=== PATIENT | female | born 1990 | race Caucasian/White ===

== ENCOUNTER 2016-10-04 21:57 | Emergency (ER) | payer MEDICAID ==
[~2016-10-04 21:57] MED LIST: IBUPROFEN600 MG PO; PERCOCET 5/3251 TA1 PO; PRENATAL-DHA P1 EACH PO
[2016-10-04 22:29] LABS: APPEARANCE CLEAR (CLEAR); COLOR YELLOW (YELLOW)
[2016-10-04 22:30] LABS: BILIRUBIN NEGATIVE (NEGATIVE); GLUCOSE NEGATIVE (NEGATIVE); HCG URINE NEGATIVE (NEGATIVE); KETONE NEGATIVE (NEGATIVE); LEUKOCYTE ESTERASE NEGATIVE (NEGATIVE); NITRITE NEGATIVE (NEGATIVE); PROTEIN NEGATIVE (NEGATIVE); UROBILINOGEN NORMAL (NORMAL)
[2016-10-04 22:38] LABS: UDS - AMPHET NEGATIVE QUAL (NEGATIVE); UDS - BARB NEGATIVE QUAL (NEGATIVE); UDS - BENZO POSITIVE QUAL (NEGATIVE); UDS - COCAINE NEGATIVE QUAL (NEGATIVE); UDS - METH NEGATIVE QUAL (NEGATIVE); UDS - OPIATE POSITIVE QUAL (NEGATIVE); UDS - PCP NEGATIVE QUAL (NEGATIVE); UDS - THC NEGATIVE QUAL (NEGATIVE)
[2016-10-04 22:49] LABS: BASOPHILS 0.4 % (0-2); HEMATOCRIT 36.8 % (36.0-48.0); HEMOGLOBIN 12.7 g/dL (12-16); IMMATURE GRANULOCYTES 0.4 % (0-5); LYMPHOCYTES 24.7 % (15-50); MCH 30.7 pg (26.0-34.0); MCHC 34.5 g/dL (31.0-37.0); MCV 88.9 fL (80.0-100.0); MEAN PLATELET VOLUME 9.6 fL (7.4-10.4); MONOCYTES 5.8 % (2-11); NEUTROPHILS 66.7 % (40-80); PLATELET COUNT 281 10x3/uL (130-400); RBC 4.14 10x6/uL (4.00-5.40); RDW 12.4 % (11.5-14.5); WBC 8.5 10x3/uL (4.8-10.8)
[2016-10-04 23:00] LABS: SALICYLATES 1.3 mg/dL (2.8-20.0)
[2016-10-04 23:01] LABS: LITHIUM 0.15 mmol/L (0.60-1.20)
[2016-10-04 23:08] LABS: ALBUMIN 4.1 g/dL (3.4-5.0); ALKALINE PHOSPHATASE 96 U/L (46-116); ALT (SGPT) 51 U/L (10-68); BILIRUBIN - TOTAL 0.31 mg/dL (0.2-1.3); CALC OSMOLALITY 280 mosm/kg (275-300); CALCIUM 9.4 mg/dL (8.5-10.1); CARBON DIOXIDE 26.5 mmol/L (21.0-32.0); CHLORIDE - SERUM 103 mmol/L (98-107); CREATININE - SERUM 0.6 mg/dL (0.6-1.3); GLUCOSE 110 mg/dL (74-106); PROTEIN - SERUM 8.1 g/dL (6.4-8.2); SODIUM 141 mmol/L (136-145); UREA NITROGEN 10 mg/dL (7-18); eGFR NON AFRICAN AMERICAN > 90 mL/min (90-120)
== END 2016-10-05 02:55 | disposition home or self-care (01) ==
LOC: D.ER 21:57
PROVIDERS: Family Medicine
DX: F32.9 Major depressive disorder, single episode, unspecified (principal); F41.9 Anxiety disorder, unspecified

== ENCOUNTER 2017-11-19 19:46 | Emergency (ER) | payer MEDICAID ==
[~2017-11-19] VITALS: Ht 152.4 cm; Wt 57.7 kg
[2017-11-19 20:15] VITALS: Ht 152.4 cm; Wt 57.7 kg
[2017-11-19] MEDS ORDERED: RESTORIL15 MG PO (20:17)
[2017-11-19] MEDS ORDERED: CIPRO500 MG PO (20:17)
[2017-11-19] MEDS ORDERED: LITHIUM CARBON300 MG PO (20:18)
[2017-11-19] MEDS ORDERED: TYLENOL #4 W/CO1 TAB PO (20:18)
[2017-11-19] MEDS ORDERED: BIRTH CONTROL (20:19)
[2017-11-19] MEDS ORDERED: TIROSINT100 MCG PO (20:19)
[2017-11-19 21:03] LABS: APPEARANCE HAZY (CLEAR)
[2017-11-19 21:04] LABS: BACTERIA MANY /hpf (NONE SEEN); COLOR ORANGE (YELLOW); RED CELLS - URINE 0-5 /hpf (0-5); SPECIFIC GRAVITY 1.015 (1.005-1.020)
[2017-11-19] MEDS ORDERED: DIFLUCAN150 MG PO (21:33)
[2017-11-19] MEDS ORDERED: ZOFRAN ODT4 MG/UDTAB PO (21:33)
[2017-11-19] MEDS ORDERED: MACROBID100 MG PO (21:33)
[2017-11-19 22:27] VITALS: BP 129/86
== END 2017-11-19 22:11 | disposition home or self-care (01) ==
LOC: D.ER 19:46
PROVIDERS: Family Medicine
DX: N39.0 Urinary tract infection, site not specified (principal); B37.3 Candidiasis of vulva and vagina

== ENCOUNTER 2018-04-28 05:10 | Day surgery (SDC) | payer MEDICAID ==
[~2018-04-28] VITALS: Ht 152.4 cm; Wt 56.7 kg
[~2018-04-28 05:10] MED LIST changes: +ATIVAN1 MG PO; +BIRTH CONTROL; +CIPRO500 MG PO; +DIFLUCAN150 MG PO; +LATUDA40 MG PO; +LITHIUM CARBON300 MG PO; +MACROBID100 MG PO; +RESTORIL15 MG PO; +TIROSINT100 MCG PO; +TRAZODONE HCL100 MG PO; +TYLENOL #4 W/CO1 TAB; +TYLENOL #4 W/CO1 TAB PO; +ZOFRAN ODT4 MG/UDTAB PO
[2018-04-28 05:32] LABS: HEMATOCRIT 35.2 % (36.0-48.0); HEMOGLOBIN 12.3 g/dL (12-16); MCH 30.7 pg (26.0-34.0); MCHC 34.9 g/dL (31.0-37.0); MCV 87.8 fL (80.0-100.0); MEAN PLATELET VOLUME 9.2 fL (7.4-10.4); RBC 4.01 10x6/uL (4.00-5.40); RDW 12.1 % (11.5-14.5); WBC 7.9 10x3/uL (4.8-10.8)
[2018-04-28 05:50] VITALS: BP 111/61; Ht 152.4 cm; Wt 56.7 kg
[2018-04-28 06:07] LABS: HCG URINE NEGATIVE (NEGATIVE)
--- NOTE | 2018-04-28 08:05 | NUR ---
REC'D FROM SURGERY. FAMILY AT BEDSIDE. VERY RESTLESS. TRYING TO GET OOB TO URINATE ALTHOUGH IT HAD BEEN EXPLAINED SHE NEEDS TO HOLD THE RIMSO MEDICATION AND TURN FROM SIDE TO SIDE FOR 15 MINUTES. CONTINUED TO ARGUE AND HIT AT SPOUSE. KEPT EXPLAINING THE PROCEDURE AND PT EVENTUALLY CALMED DOWN. C/O BURNING REALLY BAD.
--- NOTE | 2018-04-28 08:20 | NUR ---
AMBULATED TO BATHROOM AND VOIDED WITHOUT DIFFICULTY. C/O BURNING UPON URINATING. EXPLAINED MAY FEEL A BURNING SENSATION FOR A COUPLE OF DAYS. PT RELATES SHE DOES NOT FEEL SHE CAN HANDLE THIS. FL TRAY BROUGHT TO PT AND LEMON APACHE SODA.
--- NOTE | 2018-04-28 09:05 | NUR ---
TOLERATED DIET. IV DC'D WITH CATHETER INTACT.
--- NOTE | 2018-04-28 09:15 | NUR ---
WRITTEN AND VERBAL DC INST GIVEN TO PT ALONG WITH FOLLOW UP APPT. VERBALIZED UNDERSTANDING. DC'D HOME WITH FAMILY VIA PRIVATE VEHICLE. TAKEN TO VEHICLE VIA WC. STABLE AT TIME OF DC.
--- NOTE | 2018-04-28 10:38 | OP ---
PATIENT NAME: DEVYN MENDEZ MEDICAL RECORD: [id number] :90 LOCATION:D.OPS ADMISSION DATE: SURGEON: CHRIS ACOSTA MD DATE OF OPERATION: 04/28/2018 SURGEON: Chris Acosta MD ANESTHESIA: TIVA by Dr. Juan David Cali. DIAGNOSIS: Interstitial cystitis. PROCEDURES: Cystoscopy and intravesical Rimso instillation. FINDINGS: Single ureteral orifices bilaterally. No bladder tumors. Diffuse bladder inflammation. BLOOD LOSS: None. CLINICAL HISTORY: This is a 27-year-old female, A0. She is referred by Dr. Aguiar for ongoing urinary tract infection symptoms for over a year. Dr. Aguiar suspects that the patient has interstitial cystitis as her urine cultures have shown no growth and the urine cytology has been negative. She has significant suprapubic pain, dysuria, vaginal pain, and dyspareunia. She has urinary frequency every 1 hour and nocturia times 2. She comes to have cystoscopy performed for interstitial cystitis. If we see bladder inflammation, we will treat her with intravesical Rimso. Rimso is an anti-inflammatory. SHE IS ALLERGIC TO LITHIUM. She was given Ancef awning craftsperson to the OR. DESCRIPTION OF PROCEDURE: The patient was given IV sedation. She was then placed into dorsal lithotomy position and prepped and draped. A 17-Azerbaijani cystoscope with 30-degree lens was used for visualization. Diffuse bladder inflammation was noted. The bladder was then emptied through the cystoscope sheath and then the scope was removed. A 16-Azerbaijani red rubber catheter was inserted into the bladder and through the catheter, 50 mL of Rimso solution was instilled into the bladder. The catheter was then removed, leaving the solution in the bladder. The patient was then brought back to the preoperative holding area. She will hold the medication in the bladder for 15 minutes and then void it out. TRANSINT:[id number] Voice Confirmation ID: [id number] DOCUMENT ID: [id number] CHRIS ACOSTA MD at 1038 CC: [id number] DICTATION DATE: 04/28/18804 BAKED AND GRAPHITE INSPECTOR: 04/28/18 1021 [facility] 04/28/18 [place] [address]
== END 2018-04-28 09:15 | disposition home or self-care (01) ==
LOC: D.OPS 05:10
PROVIDERS: Urology
DX: N30.10 Interstitial cystitis (chronic) without hematuria (principal); Z01.812 Encounter for preprocedural laboratory examination

== ENCOUNTER → 2018-05-17 13:26 | Outpatient (CLI) | payer MEDICAID ==
[2018-04-28 05:50] VITALS: BMI 24.4
== END | disposition home or self-care (01) ==
LOC: D.LABREF 13:26
DX: D72.829 Elevated white blood cell count, unspecified (principal)

== ENCOUNTER → 2018-05-31 16:19 | Outpatient (CLI) | payer MEDICAID ==
[2018-04-28 05:50] VITALS: BMI 24.4
== END | disposition home or self-care (01) ==
LOC: D.LABREF 16:19
DX: D72.829 Elevated white blood cell count, unspecified (principal); R30.0 Dysuria

== ENCOUNTER → 2018-06-14 18:08 | Outpatient (CLI) | payer MEDICAID ==
[2018-04-28 05:50] VITALS: BMI 24.4
== END | disposition home or self-care (01) ==
LOC: D.LABREF 18:08
DX: R31.9 Hematuria, unspecified (principal); D72.829 Elevated white blood cell count, unspecified

== ENCOUNTER → 2018-09-20 13:16 | Outpatient (CLI) | payer MEDICAID ==
[2018-04-28 05:50] VITALS: BMI 24.4
== END | disposition home or self-care (01) ==
LOC: D.LABREF 13:16
PROVIDERS: ATTEND Urology
DX: D72.829 Elevated white blood cell count, unspecified (principal)

== ENCOUNTER → 2019-02-16 14:26 | Outpatient (CLI) | payer MEDICAID ==
[2018-04-28 05:50] VITALS: BMI 24.4
== END | disposition home or self-care (01) ==
LOC: D.LABREF 14:26
PROVIDERS: ATTEND Urology
DX: R31.9 Hematuria, unspecified (principal); R30.0 Dysuria

== ENCOUNTER → 2019-02-24 14:54 | Outpatient (CLI) | payer MEDICAID ==
[2018-04-28 05:50] VITALS: BMI 24.4
== END | disposition home or self-care (01) ==
LOC: D.LABREF 14:54
PROVIDERS: ATTEND Urology
DX: R31.9 Hematuria, unspecified (principal)

== ENCOUNTER 2019-03-07 05:49 | Day surgery (SDC) | payer MEDICAID ==
[~2019-03-07] VITALS: Ht 152.4 cm; Wt 54.4 kg
[2019-03-07 06:13] LABS: HEMATOCRIT 36.8 % (36.0-48.0); HEMOGLOBIN 12.5 g/dL (12-16); MCH 31.1 pg (26.0-34.0); MCV 91.5 fL (80.0-100.0); MEAN PLATELET VOLUME 9.3 fL (7.4-10.4); RBC 4.02 10x6/uL (4.00-5.40); RDW 12.6 % (11.5-14.5); WBC 6.8 10x3/uL (4.8-10.8)
[2019-03-07 07:04] VITALS: BP 121/66; Ht 152.4 cm; Wt 54.4 kg
[2019-03-07 07:17] LABS: HCG URINE NEGATIVE (NEGATIVE)
--- NOTE | 2019-03-07 09:07 | NUR ---
0846-RECD TO ROOM FROM SURGERY. ALERT. IV PATENT. DR ACOSTA IN TO REPORT PROCEDURE FINDINGS. 0900-FULL LIQUIDS SERVED.
--- NOTE | 2019-03-07 09:23 | OP ---
PATIENT NAME: DEVYN MENDEZ MEDICAL RECORD: [id number] :90 LOCATION:D.OPS ADMISSION DATE: SURGEON: CHRIS ACOSTA MD DATE OF OPERATION: 03/07/2019 SURGEON: Chris Acosta MD ANESTHESIA: TIVA by Jose Guadalupe Monroe. DIAGNOSIS: Interstitial cystitis. PROCEDURES: Cystoscopy, hydrodistention of the bladder, intravesical Rimso instillation. BLOOD LOSS: None. FINDINGS: On cystoscopy, single ureteral orifices bilaterally with no bladder tumors seen. Diffuse bladder inflammation noted. CLINICAL HISTORY: This is a 28-year-old female, who has a history of interstitial cystitis. She has been treated previously with intravesical Rimso with success. She now has a flare up again. Urine cultures have shown no growth. She comes today to have treatment of the interstitial cystitis with intravesical Rimso and hydrodistention. SHE HAS AN ALLERGY TO LITHIUM. She was given Ancef labor relations representative to the OR. DESCRIPTION OF PROCEDURE: The patient was given IV sedation. She was then placed into lithotomy position and prepped and draped. A 17-Hungarian cystoscope with 30-degree lens was used for visualization. Diffuse bladder inflammation was seen. The bladder was hydrodistended with at least 600 mL of solution in the bladder. This was held for about 2 minutes. The bladder was then emptied. A red rubber catheter was inserted into the bladder and 50 mL of Rimso solution was instilled into the bladder through the red rubber catheter. The catheter was then removed, leaving the solution in the bladder. The patient will hold the solution in for 15 minutes and then void it out. I will see the patient in followup in 2 weeks' time. TRANSINT:[id number] Voice Confirmation ID: [id number] DOCUMENT ID: [id number] CHRIS ACOSTA MD at 0923 CC: [id number] DICTATION DATE: 03/07/1946 EPIC APPLICATION COORDINATOR: 03/07/19921 [facility] [address] [place] [address]
--- NOTE | 2019-03-07 09:30 | NUR ---
DC INSTRUCTIONS GIVEN TO PT. STATES UNDERSTANDING. DC'D IV CATH FULLY INTACT. PT VOIED.
--- NOTE | 2019-03-07 09:37 | NUR ---
PT LEFT UNIT VIA AT 3561
== END 2019-03-07 09:33 | disposition home or self-care (01) ==
LOC: D.OPS 05:49 → D.PAN 08:30 → D.OPS 08:45 → D.PAN 08:50 → D.OPS 08:50
PROVIDERS: Anesthesiology; ATTEND Urology
DX: N30.10 Interstitial cystitis (chronic) without hematuria (principal)

== ENCOUNTER → 2019-03-22 21:26 | Outpatient (CLI) | payer MEDICAID ==
[2019-03-07 07:04] VITALS: BMI 23.4
== END | disposition home or self-care (01) ==
LOC: D.LABREF 21:26
PROVIDERS: ATTEND Urology
DX: D72.0 Genetic anomalies of leukocytes (principal)

== ENCOUNTER 2019-10-19 08:05 | Day surgery (SDC) | payer MEDICAID ==
[~2019-10-19] VITALS: Ht 152.4 cm; Wt 56.7 kg
[2019-10-19 08:57] LABS: HEMATOCRIT 37.4 % (36.0-48.0); HEMOGLOBIN 12.8 g/dL (12-16); MCH 30.6 pg (26.0-34.0); MCHC 34.2 g/dL (31.0-37.0); MCV 89.5 fL (80.0-100.0); MEAN PLATELET VOLUME 8.4 fL (7.4-10.4); NEUTROPHILS 62.6 % (40-80); PLATELET COUNT 262 10x3/uL (130-400); RBC 4.18 10x6/uL (4.00-5.40); RDW 11.9 % (11.5-14.5); WBC 6.1 10x3/uL (4.8-10.8)
[2019-10-19 09:17] LABS: HCG SERUM NEGATIVE (NEGATIVE)
[2019-10-19 09:43] VITALS: BP 119/80; Ht 152.4 cm; Wt 56.7 kg
[2019-10-19] MEDS ORDERED: ATIVAN1 MG PO (09:53)
[2019-10-19] MEDS ORDERED: ZANAFLEX2 M1 PO (09:53)
--- NOTE | 2019-10-19 13:50 | OP ---
PATIENT NAME: DEVYN KRAUS MEDICAL RECORD: [id number] :90 LOCATION:D.OPS ADMISSION DATE: SURGEON: CHRIS ACOSTA MD DATE OF OPERATION: 10/19/2019 SURGEON: Chris Acosta MD ANESTHESIA: TIVA by Carlo Rob CRNA DIAGNOSIS: Interstitial cystitis. PROCEDURES: Cystoscopy, hydrodistention, intravesical Rimso instillation 50 mL. FINDINGS: Single ureteral orifices bilaterally with no bladder tumors. Bladder inflammation seen. BLOOD LOSS: None. CLINICAL HISTORY: This is a 28-year-old female, who has a history of interstitial cystitis. She has been treated previously with cystoscopy, hydrodistention and Rimso. She comes now with another flareup. Urine cultures have shown no growth. She was given Ancef information services tech to the OR. DESCRIPTION OF PROCEDURE: The patient was given IV sedation. She was placed into lithotomy position and prepped and draped. A 21-Maori cystoscope with 30-degree lens was used for visualization. Findings are as outlined above. The bladder was distended to about 600 mL for 2 minutes and then the bladder was emptied. The scope was then removed. A 16-Maori red rubber catheter was inserted into the bladder and through the lumen of the catheter, 50 mL of Rimso solution was instilled into the bladder. The catheter was then removed, leaving the Rimso solution in place. The patient will void the Rimso solution out in 15 minutes. We will see the patient on a p.r.n. basis. TRANSINT:[id number] Voice Confirmation ID: [id number] DOCUMENT ID: [id number] CHRIS ACOSTA MD at 1350 CC: [id number] DICTATION DATE: 10/19/19 1305 WEAVING LOOM OPERATOR: 10/19/19 1322 [facility] [address] [place] [address]
== END 2019-10-19 13:40 | disposition home or self-care (01) ==
LOC: D.OPS 08:05
PROVIDERS: Anesthesiology; ATTEND Urology
DX: N30.10 Interstitial cystitis (chronic) without hematuria (principal)

== ENCOUNTER → 2020-09-12 12:59 | Outpatient (CLI) | payer BC ==
[2019-10-19 09:43] VITALS: BMI 24.4
[~2020-09-12 12:59] MED LIST changes: +ZANAFLEX2 M1 PO
== END | disposition home or self-care (01) ==
LOC: D.US 09-11 10:00
PROVIDERS: ATTEND Student in an Organized Health Care Education/Training Program
DX: N63.20 Unspecified lump in the left breast, unspecified quadrant (principal)